=== PATIENT | male | born 1965 | race Two or more races ===

== ENCOUNTER 2023-03-31 17:55 | Emergency (ER) | payer OTHER, BC ==
[2023-03-31] MEDS ORDERED: Acetaminophen/HYDROcodone 325-5 MG Tab PO ONE (19:50)
== END 2023-03-31 20:08 | disposition home or self-care (01) ==
LOC: MW.ED 17:55
DX: G89.29 Other chronic pain (principal); M25.512 Pain in left shoulder; I10 Essential (primary) hypertension; E78.00 Pure hypercholesterolemia, unspecified; E11.9 Type 2 diabetes mellitus without complications; E66.9 Obesity, unspecified; Z90.49 Acquired absence of other specified parts of digestive tract; Z79.899 Other long term (current) drug therapy; Z88.8 Allergy status to other drugs, medicaments and biological substances; Z68.36 Body mass index [BMI] 36.0-36.9, adult
CPT/HCPCS: 99283; A9270

== ENCOUNTER 2024-07-11 11:03 | Emergency (ER) | payer OTHER | END 2024-07-11 12:31 | disposition home or self-care (01) | LOC: MW.ED 11:03 | DX: M25.562 Pain in left knee (principal); G89.29 Other chronic pain; E66.9 Obesity, unspecified; E11.9 Type 2 diabetes mellitus without complications; Z75.3 Unavailability and inaccessibility of health-care facilities; Z88.8 Allergy status to other drugs, medicaments and biological substances; Z79.899 Other long term (current) drug therapy; Z68.35 Body mass index [BMI] 35.0-35.9, adult | CPT/HCPCS: 73562-26-LT; 73562-LT; 99283 ==